=== PATIENT | female | born 1965 | race Two or more races ===

== ENCOUNTER 2023-07-31 12:08 | Emergency (ER) | payer OTHER ==
[~2023-07-31] VITALS: Ht 154.9 cm; Wt 63.5 kg
[2023-07-31] MEDS ORDERED: CHILDREN'S ASPI81 MG PO (12:43)
[2023-07-31] MEDS ORDERED: ATORVASTATIN CA20 MG PO (12:43)
[2023-07-31] MEDS ORDERED: GLUMETZA500 MG PO (12:43)
== END 2023-07-31 17:13 | disposition home or self-care (01) ==
LOC: ER 12:08
PROVIDERS: Nurse Practitioner Family
DX: J06.9 Acute upper respiratory infection, unspecified (principal); Z20.822 Contact with and (suspected) exposure to COVID-19

== ENCOUNTER 2023-08-03 13:23 | Emergency (ER) | payer OTHER ==
[~2023-08-03] VITALS: Ht 157.5 cm; Wt 60.8 kg
[~2023-08-03 13:23] MED LIST: ATORVASTATIN CA20 MG PO; CHILDREN'S ASPI81 MG PO; GLUMETZA500 MG PO
== END 2023-08-03 20:09 | disposition home or self-care (01) ==
LOC: ER 13:24
DX: J06.9 Acute upper respiratory infection, unspecified (principal); Z20.822 Contact with and (suspected) exposure to COVID-19